=== PATIENT | male | born 1955 | race African-American/Black ===

== ENCOUNTER 2024-07-22 15:21 | Emergency (ER) | payer MEDICARE ==
[2024-07-22 15:47] LABS: #Basophils 0.03 10x3/uL (0.0-0.2); #Eosinophils Less than 0.03 10x3/uL (0.0-0.7); %Basophils 0.3 % (0.0-1.0); %Eosinophils 0.2 % (0.0-10.0); %Lymphocytes 9.7 % (21.0-51.0); %Neutrophils 83.4 % (42.0-75.0); Hematocrit 44.3 % (42.0-52.0); Hemoglobin 14.3 g/dL (14.0-18.0); Mean Corpuscular HGB CONC 32.3 g/dL (32.0-36.0); Mean Corpuscular Volume 80.7 fL (78.0-98.0); Mean Platelet Volume 9.9 fL (7.4-10.4); Platelet Count 377 10x3/uL (130-400); RBC Distribution Width 18.5 % (11.5-14.5); Red Blood Cell (RBC) Count 5.49 mill/uL (4.70-6.10)
[2024-07-22 16:07] LABS: ALT (SGPT) 44 U/L (8-55); AST (SGOT) 40 U/L (5-34); Albumin 2.8 g/dL (3.4-4.8); Alkaline Phosphatase 288 U/L (40-110); Anion Gap 17 mmol/L (10-20); BUN (Urea Nitrogen) 24 mg/dL (8.4-25.7); Bilirubin, Total 2.2 mg/dL (0.2-1.2); Calc. Creatinine Clearance 0 mL/min (70-130); Calcium 8.5 mg/dL (7.8-10.44); Carbon Dioxide 24 mmol/L (23-31); Chloride 101 mmol/L (98-107); Estimated GFR 72; Globulin 5.1 g/dL (2.4-3.5); Glucose 192 mg/dL (80-115); Potassium 3.8 mmol/L (3.5-5.1); Protein, Total 7.9 g/dL (5.8-8.1); Sodium 138 mmol/L (136-145)
== END 2024-07-22 16:49 | disposition home or self-care (01) ==
LOC: ERS 15:21
DX: R07.89 Other chest pain (principal)
CPT/HCPCS: 36415; 71045; 80053; 83880; 84484; 85025; 93005

== ENCOUNTER 2025-03-09 17:52 | Inpatient (IN) | payer MEDICARE ==
[~2025-03-09 17:52] MED LIST: Iopamidol 370 76% 100 ML VIAL ONE
[2025-03-09] MEDS ORDERED: Cefepime 2 GM VIAL ONE (18:41)
[2025-03-09 18:51] LABS: #Basophils Less than 0.03 10x3/uL (0.0-0.2); #Eosinophils Less than 0.03 10x3/uL (0.0-0.7); #Monocytes 1.01 10x3/uL (0.11-0.59); #Neutrophils 5.59 10x3/uL (1.40-6.50); %Basophils 0.2 % (0.0-1.0); %Eosinophils 0.2 % (0.0-10.0); %Lymphocytes 17.3 % (21.0-51.0); %Monocytes 12.4 % (0.0-10.0); %Neutrophils 68.9 % (42.0-75.0); Hematocrit 38.5 % (42.0-52.0); Hemoglobin 12.4 g/dL (14.0-18.0); Mean Corpuscular Hemoglobin 27.4 pg (27.0-31.0); Mean Corpuscular Volume 85.2 fL (78.0-98.0); Platelet Count 305 10x3/uL (130-400); Red Blood Cell (RBC) Count 4.52 mill/uL (4.70-6.10); White Blood Cell (WBC) Count 8.13 10x3/uL (4.8-10.8)
[2025-03-09 19:03] LABS: ALT (SGPT) 8 U/L (Less than 45); AST (SGOT) 41 U/L (11-34); Albumin 2.6 g/dL (3.1-4.5); Alkaline Phosphatase 98 U/L (40-110); Anion Gap 16 mmol/L (10-20); BUN (Urea Nitrogen) 27 mg/dL (8.4-25.7); Bilirubin, Total 0.4 mg/dL (0.3-1.2); CRP, High Sensitivity at Bryan 15.94 mg/dL (< or = 0.5); Calc. Creatinine Clearance 0 mL/min (70-130); Calcium 8.9 mg/dL (7.8-10.44); Carbon Dioxide 30 mmol/L (23-31); Chloride 97 mmol/L (98-107); Globulin 5.3 g/dL (2.4-3.5); Glucose 127 mg/dL (80-115); Potassium 3.6 mmol/L (3.5-5.1); Sodium 139 mmol/L (136-145)
[2025-03-09 19:04] LABS: CK (CPK) 1896 U/L (30-200); Lipase 30 U/L (8-78); Magnesium 2.3 mg/dL (1.6-2.6)
[2025-03-09 19:23] LABS: Bacteria/HPF 1+ HPF (None Seen); CAUTI Indications for Culture Dysuria,urgency,freq; Glucose, Urine (Dipstick) Normal (Negative); Leukocyte Negative Leu/uL (Negative); Protein, Urine (Dipstick) Negative (Neg-Trace); RBC/HPF 0-3 HPF (0-3); Specific Gravity, Urine 1.016 (1.002-1.036); Urine Culture Reflex No No; WBC/HPF 0-3 HPF (0-3)
[2025-03-09] MEDS ORDERED: Ondansetron PF 4 MG/2 ML Vial IVP PRN (21:37)
[2025-03-09] MEDS ORDERED: Pharmacy to Dose: VANC IVPB PRN (21:40)
[2025-03-09] MEDS ORDERED: Bisacodyl 10 MG SUPP PR PRN (21:42)
[2025-03-09 22:24] LABS: Cocaine Metabolite Screen Negative (Negative); THC/Cannabinoid Screen Negative (Negative); Tricyclic Screen Negative (Negative)
[2025-03-09 22:35] LABS: Actual Bicarbonate (HCO3v) 30.3 mEq/L (22-28); Analyzer IN Cardio ER; Base Excess 4.6 mEq/L (-2.0 to +3.0); Calcium, Ionized (venous) 1.08 mmol/L (1.16-1.32); Chloride (VBG) 98 mmol/L (98-106); Hematocrit-VBG 40 % (42.0-52.0); Hemoglobin (Hb) 13.7 g/dL (12.6-17.4); Potassium (VBG) 3.44 mmol/L (3.70-5.30); Sodium 139 mmol/L (133-146)
[2025-03-10] MEDS: Vancomycin 1.5 GM / NS 500ML VIAL-2-BAG IVPB SCH (01:35)
[2025-03-10 01:42] VITALS: BMI 28.2
[2025-03-10] MEDS ORDERED: Glucagon 1 MG/ML KIT IM PRN (02:49)
[2025-03-10] MEDS ORDERED: Dextrose 50% Abboject 50 ML SYRINGE SLOW IVP PRN (02:49)
[2025-03-10 04:36] LABS: #Basophils 0.03 10x3/uL (0.0-0.2); #Eosinophils Less than 0.03 10x3/uL (0.0-0.7); #Monocytes 1.24 10x3/uL (0.11-0.59); #Neutrophils 6.06 10x3/uL (1.40-6.50); %Basophils 0.4 % (0.0-1.0); %Eosinophils 0.2 % (0.0-10.0); %Lymphocytes 11.4 % (21.0-51.0); %Monocytes 14.8 % (0.0-10.0); %Neutrophils 72.2 % (42.0-75.0); Hematocrit 40.1 % (42.0-52.0); Hemoglobin 12.6 g/dL (14.0-18.0); Mean Corpuscular Hemoglobin 26.8 pg (27.0-31.0); Mean Corpuscular Volume 85.3 fL (78.0-98.0); Platelet Count 281 10x3/uL (130-400); Red Blood Cell (RBC) Count 4.70 mill/uL (4.70-6.10); White Blood Cell (WBC) Count 8.39 10x3/uL (4.8-10.8)
[2025-03-10 05:16] LABS: Actual Bicarbonate (HCO3v) 26.5 mEq/L (22-28); Base Excess 2.0 mEq/L (-2.0 to +3.0); Calcium, Ionized (venous) 1.09 mmol/L (1.16-1.32); Chloride (VBG) 99 mmol/L (98-106); Hematocrit-VBG 41 % (42.0-52.0); Hemoglobin (Hb) 13.9 g/dL (12.6-17.4); Potassium (VBG) 3.39 mmol/L (3.70-5.30); Sodium 137 mmol/L (133-146)
[2025-03-10 05:23] LABS: Anion Gap 18 mmol/L (10-20); BUN (Urea Nitrogen) 24 mg/dL (8.4-25.7); CK (CPK) 2430 U/L (30-200); Calc. Creatinine Clearance 96 mL/min (70-130); Calcium 8.5 mg/dL (7.8-10.44); Carbon Dioxide 28 mmol/L (23-31); Chloride 100 mmol/L (98-107); Glucose 119 mg/dL (80-115); Potassium 3.5 mmol/L (3.5-5.1); Sodium 142 mmol/L (136-145)
[2025-03-10] MEDS ORDERED: Gabapentin 300 MG CAP PO PRN (09:15)
[2025-03-10] MEDS: Vancomycin 1.5 GM / NS 500 ML VIAL-2-BAG IVPB SCH (09:17)
[2025-03-10] MEDS ORDERED: Albuterol 2.5 MG (3 mL) NEB NEB PRN (09:25)
[2025-03-10] MEDS: Naproxen 500 MG TAB PO PRN (13:28)
[2025-03-10] MEDS ORDERED: Furosemide 40 MG TAB PO SCH (21:00)
[2025-03-10] MEDS: Cyclobenzaprine 10 MG TAB PO SCH (21:33)
[2025-03-10] MEDS: Apixaban 5 MG TAB PO SCH (21:33)
[2025-03-10] MEDS: Vancomycin 1 GM in Premix 1 BAG IVPB SCH (21:35)
[2025-03-10] MEDS: Divalproex Sodium 500 MG ER.TAB PO SCH (21:55)
[2025-03-11 04:08] LABS: #Basophils 0.03 10x3/uL (0.0-0.2); #Eosinophils 0.09 10x3/uL (0.0-0.7); #Monocytes 1.26 10x3/uL (0.11-0.59); #Neutrophils 4.55 10x3/uL (1.40-6.50); %Basophils 0.4 % (0.0-1.0); %Eosinophils 1.2 % (0.0-10.0); %Lymphocytes 19.3 % (21.0-51.0); %Monocytes 16.9 % (0.0-10.0); %Neutrophils 61.1 % (42.0-75.0); Hematocrit 35.8 % (42.0-52.0); Hemoglobin 11.0 g/dL (14.0-18.0); Mean Corpuscular Hemoglobin 26.8 pg (27.0-31.0); Mean Corpuscular Volume 87.1 fL (78.0-98.0); Platelet Count 240 10x3/uL (130-400); Red Blood Cell (RBC) Count 4.11 mill/uL (4.70-6.10); White Blood Cell (WBC) Count 7.45 10x3/uL (4.8-10.8)
[2025-03-11 04:29] LABS: Anion Gap 12 mmol/L (10-20); BUN (Urea Nitrogen) 22 mg/dL (8.4-25.7); Calc. Creatinine Clearance 99 mL/min (70-130); Calcium 8.6 mg/dL (7.8-10.44); Carbon Dioxide 28 mmol/L (23-31); Chloride 100 mmol/L (98-107); Glucose 115 mg/dL (80-115); Potassium 3.2 mmol/L (3.5-5.1); Sodium 137 mmol/L (136-145)
[2025-03-11 05:29] LABS: Vancomycin, Random 16.5 ug/mL (See Comment)
[2025-03-11] MEDS: Rosuvastatin 20 MG TAB PO SCH (09:35)
[2025-03-11] MEDS: Amiodarone 200 MG TAB PO SCH (09:35)
[2025-03-11] MEDS: Divalproex Sodium 500 MG ER.TAB PO SCH (09:36)
[2025-03-11] MEDS: Vancomycin 1 GM/200 ML (FROZEN) BAG ONE (10:34)
[2025-03-12 04:21] LABS: #Basophils 0.04 10x3/uL (0.0-0.2); #Eosinophils 0.23 10x3/uL (0.0-0.7); #Monocytes 1.14 10x3/uL (0.11-0.59); #Neutrophils 4.69 10x3/uL (1.40-6.50); %Basophils 0.5 % (0.0-1.0); %Eosinophils 3.1 % (0.0-10.0); %Lymphocytes 17.6 % (21.0-51.0); %Monocytes 15.2 % (0.0-10.0); %Neutrophils 62.5 % (42.0-75.0); Hematocrit 31.8 % (42.0-52.0); Hemoglobin 10.1 g/dL (14.0-18.0); Mean Corpuscular Hemoglobin 27.6 pg (27.0-31.0); Mean Corpuscular Volume 86.9 fL (78.0-98.0); Platelet Count 227 10x3/uL (130-400); Red Blood Cell (RBC) Count 3.66 mill/uL (4.70-6.10); White Blood Cell (WBC) Count 7.50 10x3/uL (4.8-10.8)
[2025-03-12 06:08] LABS: Anion Gap 14 mmol/L (10-20); BUN (Urea Nitrogen) 17 mg/dL (8.4-25.7); Calc. Creatinine Clearance 117 mL/min (70-130); Calcium 8.4 mg/dL (7.8-10.44); Carbon Dioxide 25 mmol/L (23-31); Chloride 102 mmol/L (98-107); Glucose 89 mg/dL (80-115); Potassium 3.2 mmol/L (3.5-5.1); Sodium 138 mmol/L (136-145)
[2025-03-12 16:03] VITALS: BMI 28.0
[2025-03-12] MEDS: Vancomycin 1.25 GM / NS 250 ML VIAL-2-BAG IVPB SCH (21:20)
[2025-03-12] MEDS: Acetaminophen 325 MG TAB PO PRN (21:41)
[2025-03-12] MEDS: Valproic Acid 250 mg/5 ml UD Cup PO SCH (23:39)
[2025-03-13 04:46] LABS: Vancomycin, Random 20.9 ug/mL (See Comment)
[2025-03-13 04:47] LABS: Anion Gap 13 mmol/L (10-20); BUN (Urea Nitrogen) 13 mg/dL (8.4-25.7); Calc. Creatinine Clearance 112 mL/min (70-130); Calcium 8.6 mg/dL (7.8-10.44); Carbon Dioxide 24 mmol/L (23-31); Chloride 105 mmol/L (98-107); Glucose 90 mg/dL (80-115); Potassium 3.4 mmol/L (3.5-5.1); Sodium 139 mmol/L (136-145)
[2025-03-13] MEDS: Valproic Acid 250 mg/5 ml UD Cup PO SCH ×2 (09:18→21:04)
[2025-03-13] MEDS: Furosemide 20 MG TAB PO SCH (09:28)
[2025-03-13] MEDS: Cephalexin 250 MG CAP PO SCH (12:44)
[2025-03-13 20:52] VITALS: BP 156/90; TEMP 97.4
== END 2025-03-13 21:52 | DRG 689 ==
LOC: ERS 17:52 → PCU 21:34 → INTOOBSV 21:34 → OBSVTOIN 21:37
PROVIDERS: ADMIT Internal Medicine; ATTEND Emergency Medicine
PROC: 4A00X4Z Measurement of Central Nervous Electrical Activity, External Approach (ICD-10-PCS; principal; 2025-03-09)
PROC: 3E03329 Introduction of Other Anti-infective into Peripheral Vein, Percutaneous Approach (ICD-10-PCS; 2025-03-09)
DX: N39.0 Urinary tract infection, site not specified (principal); G93.41 Metabolic encephalopathy; M62.82 Rhabdomyolysis; I50.22 Chronic systolic (congestive) heart failure; L89.150 Pressure ulcer of sacral region, unstageable; I25.10 Atherosclerotic heart disease of native coronary artery without angina pectoris; I48.91 Unspecified atrial fibrillation; E11.9 Type 2 diabetes mellitus without complications; B95.7 Other staphylococcus as the cause of diseases classified elsewhere; Z79.899 Other long term (current) drug therapy
CPT/HCPCS: 36415; 36416; 70450; 70551; 71045; 71275; 74177; 80048; 80053; 80202; 80306; 81001; 82550; 82805; 83605; 83690; 83735; 83880; 84484; 85025; 86141; 87040; 87070; 87077; 87081; 87086; 87186; 87205; 93005; 95700; 95711; 95957; 96365; 96375; 97139; J0692; J2060; J3373; J7030; J7050; Q9967

== ENCOUNTER 2025-03-19 16:48 | Emergency (ER) | payer MEDICARE ==
[2025-03-19 18:35] LABS: #Basophils 0.03 10x3/uL (0.0-0.2); #Eosinophils 0.06 10x3/uL (0.0-0.7); #Monocytes 0.77 10x3/uL (0.11-0.59); #Neutrophils 4.34 10x3/uL (1.40-6.50); %Basophils 0.5 % (0.0-1.0); %Eosinophils 0.9 % (0.0-10.0); %Lymphocytes 17.4 % (21.0-51.0); %Monocytes 12.2 % (0.0-10.0); %Neutrophils 68.7 % (42.0-75.0); Hematocrit 34.7 % (42.0-52.0); Hemoglobin 11.0 g/dL (14.0-18.0); Mean Corpuscular Hemoglobin 26.8 pg (27.0-31.0); Mean Corpuscular Volume 84.4 fL (78.0-98.0); Platelet Count 179 10x3/uL (130-400); Red Blood Cell (RBC) Count 4.11 mill/uL (4.70-6.10); White Blood Cell (WBC) Count 6.32 10x3/uL (4.8-10.8)
[2025-03-19 18:51] LABS: ALT (SGPT) 9 U/L (Less than 45); AST (SGOT) 30 U/L (11-34); Albumin 2.5 g/dL (3.1-4.5); Alkaline Phosphatase 75 U/L (40-110); Anion Gap 15 mmol/L (10-20); BUN (Urea Nitrogen) 24 mg/dL (8.4-25.7); Bilirubin, Total 0.4 mg/dL (0.3-1.2); Calc. Creatinine Clearance 0 mL/min (70-130); Calcium 8.8 mg/dL (7.8-10.44); Carbon Dioxide 30 mmol/L (23-31); Chloride 97 mmol/L (98-107); Globulin 5.1 g/dL (2.4-3.5); Glucose 94 mg/dL (80-115); Magnesium 1.8 mg/dL (1.6-2.6); Potassium 2.9 mmol/L (3.5-5.1); Sodium 139 mmol/L (136-145)
[2025-03-19] MEDS ORDERED: Potassium Bicarbonate/Cit Ac 20 MEQ TAB ONE (19:44)
[2025-03-19] MEDS ORDERED: NS 0.9% w/ 20 MEQ KCL 1,000 ML ONE (19:45)
[2025-03-19 21:12] LABS: Bacteria/HPF None Seen HPF (None Seen); CAUTI Indications for Culture < 2yrs of age; Glucose, Urine (Dipstick) Normal (Negative); Leukocyte Negative Leu/uL (Negative); Protein, Urine (Dipstick) 10 mg/dL (Neg-Trace); RBC/HPF 0-3 HPF (0-3); Specific Gravity, Urine 1.021 (1.002-1.036); WBC/HPF 0-3 HPF (0-3)
[2025-03-19 21:15] LABS: Urine Culture Reflex Yes Yes
[2025-03-19] MEDS ORDERED: Ketorolac Tromethamine 30 MG (1 mL) VIAL ONE (23:24)
== END 2025-03-19 21:40 | disposition home or self-care (01) ==
LOC: ERS 16:48
DX: L89.150 Pressure ulcer of sacral region, unstageable (principal); E87.6 Hypokalemia; I11.0 Hypertensive heart disease with heart failure; I50.9 Heart failure, unspecified; E11.9 Type 2 diabetes mellitus without complications; E78.00 Pure hypercholesterolemia, unspecified; F17.210 Nicotine dependence, cigarettes, uncomplicated; I25.10 Atherosclerotic heart disease of native coronary artery without angina pectoris; Z79.899 Other long term (current) drug therapy
CPT/HCPCS: 71045; 80053; 81001; 83605; 83735; 83880; 84484; 85025; 87040; 87070; 87077; 87086; 87205; 93005; J1885; J3480; 87186; 96365; 96366; 96375